=== PATIENT | male | born 1980 | race Caucasian/White ===

== ENCOUNTER 2019-04-17 11:50 | Inpatient (IN) | payer BC ==
[~2019-04-17] VITALS: Ht 193 cm; Wt 102.3 kg
[2019-04-17 12:31] LABS: BASOPHILS # (AUTO) 0.1 X10'3 (0-0.2); BASOPHILS % (AUTO) 0.5 % (0-1); EOSINOPHILS # (AUTO) 0.1 X10'3 (0-0.9); EOSINOPHILS % (AUTO) 0.5 % (0-6); HEMATOCRIT 42.5 % (42.0-52.0); HEMOGLOBIN 14.5 g/dl (14.0-17.9); LYMPHOCYTES # (AUTO) 0.6 X10'3 (1.1-4.8); LYMPHOCYTES % (AUTO) 4.6 % (21-51); MEAN CORPUSCULAR HEMOGLOBIN 30.5 PG (27.0-31.0); MEAN CORPUSCULAR VOLUME 89.5 FL (78-98); MEAN PLATELET VOLUME 8.5 FL (7.4-10.4); MONOCYTES # (AUTO) 0.2 X10'3 (0-0.9); MONOCYTES % (AUTO) 1.6 % (2-12); NEUTROPHILS # (AUTO) 11.7 X10'3 (1.8-7.7); NEUTROPHILS % (AUTO) 92.8 % (42-75); PLATELET COUNT 345 X10'3 (140-440); RED BLOOD COUNT 4.74 X10'6 (4.70-6.10); RED CELL DISTRIBUTION WIDTH 14.6 % (11.5-14.5); WHITE BLOOD COUNT 12.6 X10'3 (4.5-11.0)
[2019-04-17] MEDS ORDERED: normal saline 1000ml 1,000 ML IV SCH (12:36)
[2019-04-17] MEDS ORDERED: metoclopramide 5 mg/ml inj IV ONE (12:40)
[2019-04-17] MEDS ORDERED: morphine 4 MG/ML inj SYRINge IV ONE (12:40)
[2019-04-17] MEDS ORDERED: potassium Cl 20 mEq SR tablet PO PRN ×4 (12:40→15:15)
[2019-04-17] MEDS ORDERED: potassium CL 10mEq/100ml bag 100 ML IV PRN ×4 (12:40→15:15)
[2019-04-17 12:48] LABS: CLARITY,URINE CLEAR (Clear); GLUCOSE, URINE >=1000 mg/dl (Neg); KETONES,URINE >=80 mg/dl (Neg); LEUKOCYTE ESTERASE ,URINE NEGATIVE (Neg); NITRITES, URINE NEGATIVE (Neg); OCCULT BLOOD,URINE SMALL (Neg); PH,URINE 5.5 (4.8-8.0); PROTEIN,URINE 30 mg/dl (Neg); UROBILINOGEN,URINE 0.2 E.U/dL (0.2-1.0)
[2019-04-17 12:50] LABS: ALANINE AMINOTRANSFERASE 74 U/L (12-78); ALBUMIN 2.3 G/DL (3.4-5.0); ALBUMIN/GLOBULIN RATIO 0.5 (1.1-1.5); ALKALINE PHOSPHATASE 354 IU/L (46-116); ANION GAP 18 (8-16); ASPARTATE AMINO TRANSFERASE 26 U/L (10-37); BILIRUBIN,TOTAL 0.5 MG/DL (0.1-1.0); BLOOD UREA NITROGEN 29 MG/DL (7-18); BUN/CREATININE RATIO 21.6 (5.4-32.0); CALCIUM 9.5 MG/DL (8.5-10.1); CHLORIDE 89 MMOL/L (99-107); CREATININE 1.34 MG/DL (0.60-1.10); GLUCOSE 420 MG/DL (70-104); POTASSIUM 4.5 MMOL/L (3.5-5.1); SODIUM 124 MMOL/L (135-145); TOTAL CARBON DIOXIDE 17.4 MMOL/L (24-32); TOTAL PROTEIN 7.2 G/DL (6.4-8.2); eGFR 59 ML/MIN
[2019-04-17 12:53] LABS: PHOSPHORUS 2.9 MG/DL (2.3-4.5); PLATELET ESTIMATE NORMAL; TOTAL CELLS COUNTED 100
[2019-04-17 12:54] LABS: COLOR,URINE YELLOW (Yellow); UA COLLECTION TYPE VOIDED
[2019-04-17 12:55] LABS: BACTERIA,URINE NONE SEEN /HPF (Neg); MUCUS STRANDS NONE SEEN /LPF (Neg); RBC,URINE NONE SEEN /HPF (0-2); SQUAMOUS EPITHELIAL CELL,UR FEW /LPF (FEW); WBC,URINE NONE SEEN /HPF (0-4)
[2019-04-17] MEDS ORDERED: normal saline 1000ML IV soln IV ONE (13:00)
[2019-04-17] MEDS: normal saline 1000ml 1,000 ML IV SCH ×4 (13:06→22:07)
[2019-04-17] MEDS ORDERED: CefTRIAXone 2gm/D5W 50ml 50 ML IV ONE (13:35)
[2019-04-17] MEDS ORDERED: azithromycin/NS 500mg/250ml 250 ML IV ONE (13:35)
[2019-04-17] MEDS ORDERED: acetaminophen 325mg tablet PO ONE (15:00)
[2019-04-17] MEDS ORDERED: METF-438 PO (15:09)
[2019-04-17] MEDS ORDERED: PRAV40TA3 PO (15:09)
[2019-04-17] MEDS ORDERED: OMEP-50 PO (15:09)
[2019-04-17] MEDS ORDERED: LIRA0.6P2 SQ (15:09)
[2019-04-17] MEDS ORDERED: INSU100I29 SQ (15:09)
[2019-04-17] MEDS ORDERED: NOVLG SQ (15:09)
[2019-04-17] MEDS ORDERED: ENAL2.5T PO (15:09)
[2019-04-17] MEDS ORDERED: magnesium 4gm in 100ml NS 100 ML IV PRN (15:15)
[2019-04-17] MEDS ORDERED: mag hydrox/Alum hydrox/simeth 30ml oral suspension PO PRN (15:15)
[2019-04-17] MEDS ORDERED: metoclopramide 5 mg/ml inj IV PRN (15:15)
[2019-04-17] MEDS ORDERED: morphine 2 MG/ML inj. syringe IV PRN ×2 (15:15)
[2019-04-17] MEDS ORDERED: magnesium 2GM in 50ml NS 50 ML IV PRN (15:15)
[2019-04-17] MEDS ORDERED: MESSAGE TO PHARMACY PO ONE (15:15)
[2019-04-17] MEDS ORDERED: dextrose 50%-water 50ml dispensing syringe IV PRN ×2 (15:15)
[2019-04-17] MEDS ORDERED: acetaminophen 325mg tablet PO PRN ×2 (15:15)
[2019-04-17] MEDS ORDERED: glucagon, human recombinant 1mg kit SUBCUT PRN (15:15)
[2019-04-17] MEDS ORDERED: ipratropium/albuterol 3ml nebule NEB PRN (15:15)
[2019-04-17] MEDS ORDERED: acetaminophen 650mg rectal suppository RC PRN (15:15)
[2019-04-17] MEDS ORDERED: magnesium Cl slow-release 64mg tablet PO PRN (15:15)
[2019-04-17] MEDS ORDERED: dextrose ORAL solution 15 GM/59 ML bottle PO PRN ×2 (15:15)
[2019-04-17] MEDS ORDERED: magnesium hydroxide 30ml (MOM) UD suspension PO PRN (15:15)
[2019-04-17] MEDS ORDERED: bisacodyl 10mg suppository rectal RC PRN (15:15)
[2019-04-17] MEDS ORDERED: iohexol 350MG/ML 100ml bottle IV ONE (15:46)
[2019-04-17] MEDS: levoFLOXACIN-Levaquin 750MG/D5 150 ML IV SCH (15:53)
[2019-04-17 15:56] LABS: URINE AMPHETAMINE SCREEN NEGATIVE (Neg); URINE BARBITUATE SCREEN NEGATIVE (Neg); URINE BENZODIAZEPINES SCREEN NEGATIVE (Neg); URINE CANNABINOID SCREEN POSITIVE (Neg); URINE COCAINE SCREEN NEGATIVE (Neg); URINE METHADONE SCREEN NEGATIVE (Neg); URINE OPIATE SCREEN NEGATIVE (Neg); URINE PHENCYCLIDINE SCREEN NEGATIVE (Neg)
--- NOTE | 2019-04-17 16:58 | NUR ---
RECEIVED REPORT VIA TELEPHONE FROM STEPHEN OTT
--- NOTE | 2019-04-17 16:58 | NUR ---
PER [facility], ROOM NOT CLEAN AND READY FOR PT. [facility] WILL CALL WITH UPDATE. ED CRN NOTIFIED
[2019-04-17] MEDS: ondansetron/PF 4mg/2ml inj IV PRN (17:31)
--- NOTE | 2019-04-17 17:45 | NUR ---
RECEIVED VIA CHOCO FROM
[2019-04-17 18:00] VITALS: BP 111/51
--- NOTE | 2019-04-17 18:25 | NUR ---
Problems reprioritized. Patient report given, questions answered & plan of care reviewed with STEPHEN GRIMM.
--- NOTE | 2019-04-17 19:07 | NUR ---
Patient in room PCU 3016. I have received report from Homar MITCHELL and had the opportunity to ask questions and assume patient care.
[2019-04-17] MEDS: K and/or MAG REPLACEMENT MC SCH ×2 (19:19→19:20)
--- NOTE | 2019-04-17 19:21 | NUR ---
Patient just received dinner tray. Will cover with insulin once he has eaten so carbs can be calculated.
[2019-04-17 19:24] LABS: D-DIMER 2.36 MG/L FEU (0-0.50)
[2019-04-17] MEDS: insulin Lispro (HumaLOG) vial - multi-dose SQ SCH ×2 (19:48→21:40)
[2019-04-17] MEDS: heparin, porcine 5000 units/ml vial SQ SCH (19:50)
[2019-04-17] MEDS ORDERED: diphenhydrAMINE 25mg capsule PO ONE (21:25)
[2019-04-17] MEDS ORDERED: prednisone 10mg tablet PO PRN (21:25)
[2019-04-17] MEDS: insulin glargine (Lantus) pen - multi-dose SQ SCH (21:40)
[2019-04-17] MEDS: ipratropium/albuterol 3ml nebule NEB SCH (21:44)
[2019-04-17] MEDS ORDERED: prednisone 10mg tablet PO ONE (21:55)
[2019-04-17 22:00] VITALS: BP 115/53
--- NOTE | 2019-04-17 22:23 | NUR ---
promotional table spacer PAGER ID: [phone] MESSAGE: Patient Festus Leal Rm [id number] Patient requesting a sleep aid please. Thank you! Jeannette MITCHELL ext. [phone]
[2019-04-18] MEDS ORDERED: temazepam 15mg capsule PO PRN (01:05)
[2019-04-18 02:00] VITALS: BP 123/70
[2019-04-18 03:43] LABS: BASOPHILS % (AUTO) 0.2 % (0-1); EOSINOPHILS % (AUTO) 0 % (0-6); HEMATOCRIT 36.5 % (42.0-52.0); HEMOGLOBIN 12.6 g/dl (14.0-17.9); LYMPHOCYTES # (AUTO) 0.6 X10'3 (1.1-4.8); LYMPHOCYTES % (AUTO) 5.9 % (21-51); MEAN CORPUSCULAR HEMOGLOBIN 31.3 PG (27.0-31.0); MEAN CORPUSCULAR HGB CONC 34.5 g/dL (33.0-36.5); MEAN CORPUSCULAR VOLUME 90.7 FL (78-98); MEAN PLATELET VOLUME 8.7 FL (7.4-10.4); MONOCYTES # (AUTO) 0.2 X10'3 (0-0.9); MONOCYTES % (AUTO) 2.1 % (2-12); NEUTROPHILS # (AUTO) 9.4 X10'3 (1.8-7.7); NEUTROPHILS % (AUTO) 91.8 % (42-75); PLATELET COUNT 268 X10'3 (140-440); RED BLOOD COUNT 4.03 X10'6 (4.70-6.10); RED CELL DISTRIBUTION WIDTH 14.7 % (11.5-14.5); WHITE BLOOD COUNT 10.2 X10'3 (4.5-11.0)
[2019-04-18 03:55] LABS: ALANINE AMINOTRANSFERASE 57 U/L (12-78); ALBUMIN 1.9 G/DL (3.4-5.0); ALBUMIN/GLOBULIN RATIO 0.5 (1.1-1.5); ALKALINE PHOSPHATASE 272 IU/L (46-116); ANION GAP 13 (8-16); ASPARTATE AMINO TRANSFERASE 27 U/L (10-37); BILIRUBIN,TOTAL 0.3 MG/DL (0.1-1.0); BLOOD UREA NITROGEN 24 MG/DL (7-18); CALCIUM 8.4 MG/DL (8.5-10.1); CHLORIDE 97 MMOL/L (99-107); CREATININE 1.26 MG/DL (0.60-1.10); GLUCOSE 316 MG/DL (70-104); POTASSIUM 4.3 MMOL/L (3.5-5.1); SODIUM 131 MMOL/L (135-145); TOTAL PROTEIN 5.9 G/DL (6.4-8.2); eGFR 63 ML/MIN
[2019-04-18 03:59] LABS: CHOL/HDL RATIO 7.8 (0.00-4.99); CHOLESTEROL 94 MG/DL (0-200); HDL CHOLESTEROL 12 MG/DL (35-60); LDL CHOLESTEROL 47 MG/DL (50-100); MAGNESIUM 1.9 MG/DL (1.5-2.4); PHOSPHORUS 2.7 MG/DL (2.3-4.5); TRIGLYCERIDES 159 MG/DL (20-135)
[2019-04-18] MEDS ORDERED: prednisone 10mg tablet PO ONE ×2 (04:00→10:00)
[2019-04-18] MEDS: ipratropium/albuterol 3ml nebule NEB SCH ×4 (04:16→20:50)
[2019-04-18 06:00] VITALS: BP 99/55
--- NOTE | 2019-04-18 06:30 | NUR ---
Patient in room PCU 3016. I have received report from STEPHEN GRIMM and had the opportunity to ask questions and assume patient care.
--- NOTE | 2019-04-18 06:33 | NUR ---
Problems reprioritized. Patient report given, questions answered & plan of care reviewed with Homar RN.
[2019-04-18] MEDS: normal saline 1000ml 1,000 ML IV SCH ×2 (07:27→15:29)
[2019-04-18 07:32] VITALS: BP 99/59
[2019-04-18] MEDS: lisinopril 5mg tablet PO SCH (07:33)
[2019-04-18] MEDS: pravastatin 40mg tablet PO SCH (07:35)
[2019-04-18] MEDS: HYDROcodone/acetaminophen 10/325mg tab PO PRN ×2 (07:36→17:22)
[2019-04-18] MEDS: heparin, porcine 5000 units/ml vial SQ SCH ×2 (07:38→19:08)
[2019-04-18] MEDS: K and/or MAG REPLACEMENT MC SCH ×3 (08:00→20:00)
--- NOTE | 2019-04-18 08:46 | NUR ---
PAGER ID: [phone] MESSAGE: DR. MURPHY, [id number]/ANDREW,HAVE BEEN PRE MEDICATING FOR CTA, NUC MED HERE FOR VQ SCAN. PLEASE CLARIFY. [facility] [id number]. TY.
[2019-04-18] MEDS: insulin Lispro (HumaLOG) vial - multi-dose SQ SCH ×4 (09:00→21:39)
[2019-04-18] MEDS ORDERED: iohexol 350MG/ML 100ml bottle IV ONE (09:55)
[2019-04-18 11:00] VITALS: BP 99/63
[2019-04-18] MEDS: MESSAGE TO NURSING PO SCH (11:15)
--- NOTE | 2019-04-18 11:48 | NUR ---
PAGER ID: [phone] MESSAGE: DR. MURPHY, [id number]/ANDREW, SMOKES A PACK A DAY, REQUESTING NICOTINE PATCH. [facility] [id number]. TY./
--- NOTE | 2019-04-18 15:17 | NUR ---
DM/Malnutrition consult: Pt admitted with sepsis r/t pneumonia and respiratory failure. RD sourcing internship visited pt and family member at bedside and provided written and verbal protein and DM education with referral to CDE course and RD contact information. Pt documented with A1c of 11 and reports A1c of 10.5 a few months ago when he last visited his acls specialist. He reports only "checking his blood sugars when he feels funny" and correcting it as needed. Pt encouraged to check his blood sugars more frequently and to see his DM specialist frequently for DM management. He expressed his frustrations with his current DM specialist and reports looking for a different one. He reports currently taking metformin and 3 insulins, however could not recall what they were called. He is documented with metformin, novolog and tresiba per MD. 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 Pt agreeable to double protein BIDLD, d/w dietary. Pt currently eating well on carb controlled diet with PO intake of 100% last two meals, up from 25% of first meal, meeting nutrient needs. Pt does not appear with visible fat or muscle wasting and reports losing weight due to not feeling well, but was not sure how much. He is documented with no edema and normal muscle strength. Pt does not meet minimum criteria for malnutrition at this time. LBM 2/7. Pt reports constipation, agreeable to power pudding tonight, d/w dietary. Will continue to monitor. Recommendations: 1. continue carb controlled diet 2. double protein BIDLD 3. bowel care as needed 4. weight per rx Addendum: 04/18/19 at 1518 by Wing Ángela SANTOS Amended: Links added. Addendum: 04/18/19 at [address] I have reviewed and agree with note by Secy. Nkechi Christine RD
[2019-04-18] MEDS: levoFLOXACIN-Levaquin 750MG/D5 150 ML IV SCH (15:29)
--- NOTE | 2019-04-18 16:45 | NUR ---
PAGER ID: [phone] MESSAGE: DR. MURPHY, [id number]/ANDREW, AND SISTER ARE CONCERNED HIS SKIN IS LOOKING YELLOW. I DO NOT SEE IT, BUT THEY ARE VERY CONCERNED. [facility] [id number]. TY
--- NOTE | 2019-04-18 18:21 | NUR ---
Problems reprioritized. Patient report given, questions answered & plan of care reviewed with STEPHEN GRIMM.
[2019-04-18 18:30] VITALS: BP 102/57
--- NOTE | 2019-04-18 18:33 | NUR ---
Patient in room PCU 3017. I have received report from Homar MITCHELL and had the opportunity to ask questions and assume patient care.
[2019-04-18] MEDS: ondansetron/PF 4mg/2ml inj IV PRN (19:07)
[2019-04-18] MEDS: insulin glargine (Lantus) pen - multi-dose SQ SCH (21:42)
[2019-04-18 22:30] VITALS: BP 100/57
[2019-04-19] MEDS: normal saline 1000ml 1,000 ML IV SCH ×3 (01:51→11:08)
[2019-04-19 02:00] VITALS: BP 105/57
[2019-04-19] MEDS: ipratropium/albuterol 3ml nebule NEB SCH ×4 (02:32→21:11)
[2019-04-19 06:01] LABS: BASOPHILS # (AUTO) 0.1 X10'3 (0-0.2); BASOPHILS % (AUTO) 0.5 % (0-1); EOSINOPHILS # (AUTO) 0.1 X10'3 (0-0.9); EOSINOPHILS % (AUTO) 0.8 % (0-6); HEMATOCRIT 33.7 % (42.0-52.0); HEMOGLOBIN 11.4 g/dl (14.0-17.9); LYMPHOCYTES # (AUTO) 0.9 X10'3 (1.1-4.8); LYMPHOCYTES % (AUTO) 6.5 % (21-51); MEAN CORPUSCULAR HEMOGLOBIN 30.8 PG (27.0-31.0); MEAN CORPUSCULAR HGB CONC 33.8 g/dL (33.0-36.5); MEAN CORPUSCULAR VOLUME 91.1 FL (78-98); MEAN PLATELET VOLUME 8.9 FL (7.4-10.4); MONOCYTES # (AUTO) 0.6 X10'3 (0-0.9); MONOCYTES % (AUTO) 4.7 % (2-12); NEUTROPHILS # (AUTO) 11.7 X10'3 (1.8-7.7); NEUTROPHILS % (AUTO) 87.5 % (42-75); PLATELET COUNT 328 X10'3 (140-440); RED CELL DISTRIBUTION WIDTH 14.9 % (11.5-14.5); WHITE BLOOD COUNT 13.4 X10'3 (4.5-11.0)
[2019-04-19 06:17] LABS: ALANINE AMINOTRANSFERASE 48 U/L (12-78); ALBUMIN 1.9 G/DL (3.4-5.0); ALBUMIN/GLOBULIN RATIO 0.5 (1.1-1.5); ALKALINE PHOSPHATASE 253 IU/L (46-116); ANION GAP 20 (8-16); ASPARTATE AMINO TRANSFERASE 25 U/L (10-37); BILIRUBIN,TOTAL 0.4 MG/DL (0.1-1.0); BLOOD UREA NITROGEN 26 MG/DL (7-18); BUN/CREATININE RATIO 21.1 (5.4-32.0); CALCIUM 8.4 MG/DL (8.5-10.1); CHLORIDE 101 MMOL/L (99-107); CREATININE 1.23 MG/DL (0.60-1.10); GLUCOSE 390 MG/DL (70-104); MAGNESIUM 2.2 MG/DL (1.5-2.4); PHOSPHORUS 2.2 MG/DL (2.3-4.5); SODIUM 135 MMOL/L (135-145); TOTAL PROTEIN 5.8 G/DL (6.4-8.2); eGFR 65 ML/MIN
[2019-04-19 06:21] LABS: TOTAL CARBON DIOXIDE 14.1 MMOL/L (24-32)
--- NOTE | 2019-04-19 06:28 | NUR ---
Problems reprioritized. Patient report given, questions answered & plan of care reviewed with Lindsey MITCHELL.
--- NOTE | 2019-04-19 06:45 | NUR ---
Paged Dr. Godinez regarding critical C02 PAGER ID: [phone] MESSAGE: re [id number] Festus Drake- Critical lab C02 14.1. Thanks, Lindsey sanchez [phone] Addendum: 04/19/19 at 0651 by Lindsey Acosta RN New order for MAYELIN. Page sent to Respiratory.
[2019-04-19 07:00] VITALS: BP 101/61
[2019-04-19] MEDS: K and/or MAG REPLACEMENT MC SCH ×3 (08:00→20:00)
[2019-04-19 08:41] LABS: ABG HCO3 12.3 mmol/L (22.0-26.0); ABG PCO2 (T) 26.9 mmHg (35.0-45.0); ABG PH (T) 7.277 (7.350-7.450); ABG PO2 (T) 83.3 mmHg (83-108); FCOHb 0.3 % (0.5-1.5); FMetHb 0.2 % (0.3-1.12); FO2Hb 95.5 % (94-100)
[2019-04-19] MEDS: lisinopril 5mg tablet PO SCH (09:00)
[2019-04-19] MEDS: pravastatin 40mg tablet PO SCH (09:00)
[2019-04-19] MEDS: heparin, porcine 5000 units/ml vial SQ SCH ×2 (09:01→22:00)
[2019-04-19] MEDS: pantoprazole 40mg Tablet.DR PO SCH (09:03)
[2019-04-19] MEDS: insulin Lispro (HumaLOG) vial - multi-dose SQ SCH (09:07)
[2019-04-19] MEDS: ondansetron/PF 4mg/2ml inj IV PRN ×2 (09:17→16:41)
[2019-04-19] MEDS: HYDROcodone/acetaminophen 10/325mg tab PO PRN ×2 (09:17→13:36)
[2019-04-19] MEDS ORDERED: sodium bicarbonate (8.4%) inj. 100 MEQ in dextrose 5% water 500ml 500 ML IV PRN (09:49)
[2019-04-19] MEDS ORDERED: normal saline 1000ml 1,000 ML IV SCH (09:49)
[2019-04-19] MEDS ORDERED: sodium bicarbonate (8.4%) inj. 50 MEQ in dextrose 5% water 500ml 250 ML IV PRN (09:49)
[2019-04-19] MEDS ORDERED: potassium Cl 20 mEq SR tablet PO PRN ×2 (09:50)
[2019-04-19] MEDS ORDERED: sodium phosphate inj. 30 MMOL in dextrose 5%-water 250 ML IV PRN (09:50)
[2019-04-19] MEDS ORDERED: potassium CL 10mEq/100ml bag 100 ML IV PRN ×2 (09:50)
[2019-04-19] MEDS ORDERED: insulin regular, human U-100 3ml vial - multi-dose IV PRN (09:50)
[2019-04-19] MEDS ORDERED: sodium phosphate inj. 15 MMOL in dextrose 5%-water 250 ML IV PRN (09:50)
[2019-04-19] MEDS ORDERED: sodium bicarbonate (8.4%) inj. 100 MEQ in sodium chloride 0.45% 1,000 ML IV SCH (09:50)
[2019-04-19] MEDS: MESSAGE TO NURSING PO SCH (10:00)
--- NOTE | 2019-04-19 10:00 | NUR ---
Problems reprioritized. Patient report given, questions answered & plan of care reviewed with STEPHEN Santillan and STEPHEN Flor.
--- NOTE | 2019-04-19 10:00 | NUR ---
Received report from [facility] to assume care. Patient stable.
[2019-04-19] MEDS ORDERED: Potassium Cl inj 20 MEQ in normal saline 1000ml 990 ML IV SCH (10:30)
[2019-04-19 11:00] VITALS: BP 98/51
[2019-04-19] MEDS: Insulin Reg/NS 100units/100mL 100 ML IV SCH (11:49)
--- NOTE | 2019-04-19 13:00 | NUR ---
Nutrition consult: Pt seen by international coordinator yesterday for written and verbal DM and protein education as well as malnutrition risk screen, see below. Pt documented with 75-100% PO intake receiving double protein BIDLD prior to diet order change to NPO. No further f/u warranted at this time. Will continue to follow. DM/Malnutrition consult: Pt admitted with sepsis r/t pneumonia and respiratory failure. RD event planning intern visited pt and family member at bedside and provided written and verbal protein and DM education with referral to CDE course and RD contact information. 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 He reports only "checking his blood sugars when he feels funny" and correcting it as needed. Pt encouraged to check his blood sugars more frequently and to see his DM specialist frequently for DM management. He expressed his frustrations with his current DM specialist and reports looking for a different one. He reports currently taking metformin and 3 insulins, however could not recall what they were called. He is documented with metformin, novolog and tresiba per MD. Pt reports a great appetite now and actually "feeling hungry again" which he wasn't d/t N/V 2-3 days [employer]. Pt agreeable to double protein BIDLD, d/w dietary. Pt currently eating well on carb controlled diet with PO intake of 100% last two meals, up from 25% of first meal, meeting nutrient needs. Pt does not appear with visible fat or muscle wasting and reports losing weight due to not feeling well, but was not sure how much. He is documented with no edema and normal muscle strength. Pt does not meet minimum criteria for malnutrition at this time. LBM 2/7. Pt reports constipation, agreeable to power pudding tonight, d/w dietary. Will continue to monitor. Recommendations: 1. continue carb controlled diet 2. double protein BIDLD 3. bowel care as needed 4. weight per rx Addendum: 02/12/20 at [address] Amended: Links added.
--- NOTE | 2019-04-19 14:01 | NUR ---
Paged Dr. Rudolph: PAGER ID: [phone] MESSAGE: RE: Festus Drake [id number]. Patient is a pack per day smoker. He is requesting a nicotine patch. Thank you. Jacque [phone]
--- NOTE | 2019-04-19 14:50 | NUR ---
New order from Dr. Rudolph: 21 mg nicotine patch daily.
[2019-04-19 15:00] VITALS: BP 98/62
[2019-04-19] MEDS: nicotine 21mg patch - 24 hr TD SCH (15:12)
[2019-04-19] MEDS: potassium CL 20mEq in D5-1/2NS 1,000 ML IV PRN ×2 (15:13→23:08)
[2019-04-19] MEDS: Neutra Phos packet PO PRN (16:41)
[2019-04-19 16:46] LABS: ALBUMIN 1.9 G/DL (3.4-5.0); ANION GAP 12 (8-16); BLOOD UREA NITROGEN 21 MG/DL (7-18); BUN/CREATININE RATIO 19.4 (5.4-32.0); CALCIUM 8.3 MG/DL (8.5-10.1); CHLORIDE 107 MMOL/L (99-107); CREATININE 1.08 MG/DL (0.60-1.10); GLUCOSE 198 MG/DL (70-104); POTASSIUM 3.5 MMOL/L (3.5-5.1); SODIUM 138 MMOL/L (135-145); TOTAL CARBON DIOXIDE 19.3 MMOL/L (24-32); eGFR 76 ML/MIN
[2019-04-19 19:00] VITALS: BP 93/52
[2019-04-19] MEDS: levoFLOXACIN-Levaquin 750MG/D5 150 ML IV SCH (19:51)
[2019-04-19 22:00] VITALS: BP 112/62
[2019-04-20] MEDS: Neutra Phos packet PO PRN (00:14)
[2019-04-20] MEDS: Insulin Reg/NS 100units/100mL 100 ML IV SCH (01:21)
[2019-04-20 02:00] VITALS: BP 114/71
[2019-04-20] MEDS: ipratropium/albuterol 3ml nebule NEB SCH ×3 (03:17→14:14)
[2019-04-20] MEDS: HYDROcodone/acetaminophen 10/325mg tab PO PRN (03:19)
[2019-04-20] MEDS: potassium CL 20mEq in D5-1/2NS 1,000 ML IV PRN ×2 (03:55→07:37)
--- NOTE | 2019-04-20 04:28 | NUR ---
Radhad JAYY Hospitalist: PAGER ID: [phone] MESSAGE: RE: Festus Leal [id number]. DKA patient. Blood sugars trending in the 130's. Insulin gtt at 5 units. IVF D5 1/2 NS +20kcl at 250. Can we decrease insulin rate? Thank you. Jacque Topete Addendum: 04/20/19 at 0623 by Jacque Levine RN New order from Dr. Godinez: Insulin gtt @ 3 units/hour
[2019-04-20] MEDS ORDERED: Insulin Reg/NS 100units/100mL 100 ML IV SCH (04:42)
[2019-04-20 05:33] LABS: BASOPHILS % (AUTO) 0.3 % (0-1); EOSINOPHILS % (AUTO) 0.2 % (0-6); HEMATOCRIT 33.8 % (42.0-52.0); HEMOGLOBIN 11.8 g/dl (14.0-17.9); LYMPHOCYTES # (AUTO) 1.3 X10'3 (1.1-4.8); LYMPHOCYTES % (AUTO) 11.7 % (21-51); MEAN CORPUSCULAR HGB CONC 34.9 g/dL (33.0-36.5); MEAN CORPUSCULAR VOLUME 88.9 FL (78-98); MEAN PLATELET VOLUME 8.5 FL (7.4-10.4); MONOCYTES # (AUTO) 0.7 X10'3 (0-0.9); MONOCYTES % (AUTO) 6.9 % (2-12); NEUTROPHILS # (AUTO) 8.8 X10'3 (1.8-7.7); NEUTROPHILS % (AUTO) 80.9 % (42-75); PLATELET COUNT 364 X10'3 (140-440); RED CELL DISTRIBUTION WIDTH 14.9 % (11.5-14.5); WHITE BLOOD COUNT 10.9 X10'3 (4.5-11.0)
[2019-04-20 06:00] VITALS: BP 101/57
[2019-04-20 06:01] LABS: ALANINE AMINOTRANSFERASE 41 U/L (12-78); ALBUMIN 1.8 G/DL (3.4-5.0); ALBUMIN/GLOBULIN RATIO 0.5 (1.1-1.5); ALKALINE PHOSPHATASE 194 IU/L (46-116); ANION GAP 9 (8-16); ASPARTATE AMINO TRANSFERASE 22 U/L (10-37); BILIRUBIN,TOTAL 0.3 MG/DL (0.1-1.0); BLOOD UREA NITROGEN 10 MG/DL (7-18); BUN/CREATININE RATIO 11.2 (5.4-32.0); CALCIUM 8.1 MG/DL (8.5-10.1); CHLORIDE 107 MMOL/L (99-107); CREATININE 0.89 MG/DL (0.60-1.10); GLUCOSE 147 MG/DL (70-104); MAGNESIUM 1.5 MG/DL (1.5-2.4); POTASSIUM 3.2 MMOL/L (3.5-5.1); SODIUM 139 MMOL/L (135-145); TOTAL CARBON DIOXIDE 23.1 MMOL/L (24-32); TOTAL PROTEIN 5.3 G/DL (6.4-8.2); eGFR > 90 ML/MIN
--- NOTE | 2019-04-20 06:10 | NUR ---
Patient in room PCU 3026. I have received report from Jacque MITCHELL and had the opportunity to ask questions and assume patient care.
[2019-04-20 06:17] LABS: PHOSPHORUS 1.1 MG/DL (2.3-4.5)
--- NOTE | 2019-04-20 06:23 | NUR ---
Problems reprioritized. Patient report given, questions answered & plan of care reviewed with STEPHEN Lowe. Patient stable at transfer of care.
--- NOTE | 2019-04-20 06:27 | NUR ---
Patient in room PCU 3026. I have received report from Jacque MITCHELL and had the opportunity to ask questions and assume patient care.
[2019-04-20] MEDS: pravastatin 40mg tablet PO SCH (07:34)
[2019-04-20] MEDS: heparin, porcine 5000 units/ml vial SQ SCH (07:34)
[2019-04-20] MEDS: pantoprazole 40mg Tablet.DR PO SCH (07:35)
[2019-04-20] MEDS: lisinopril 5mg tablet PO SCH (07:39)
[2019-04-20] MEDS: K and/or MAG REPLACEMENT MC SCH ×2 (07:40→08:00)
[2019-04-20] MEDS: nicotine 21mg patch - 24 hr TD SCH (07:53)
--- NOTE | 2019-04-20 09:48 | NUR ---
PAGER ID: [phone] MESSAGE: Re: Festus Andrew, Room: [facility]. Pt's Anion gap: 9 and CO2: 23.1. Diet ordered for Pt. Do you want any Lantus administered prior to eating? -[facility] #[id number] Dr. Rudolph paged concerning Pt's current labs and Diet
[2019-04-20] MEDS: ondansetron/PF 4mg/2ml inj IV PRN ×2 (09:49→15:14)
[2019-04-20] MEDS: HYDROcodone/acetaminophen 5mg/325mg tablet PO PRN ×2 (09:49→15:14)
[2019-04-20] MEDS ORDERED: glucagon, human recombinant 1mg kit SUBCUT PRN (09:55)
[2019-04-20] MEDS ORDERED: dextrose 50%-water 50ml dispensing syringe IV PRN ×2 (09:55)
[2019-04-20] MEDS ORDERED: dextrose ORAL solution 15 GM/59 ML bottle PO PRN ×2 (09:55)
[2019-04-20] MEDS ORDERED: potassium phosphate inj 30 MMOL in normal saline 500ml IV soln 500 ML IV ONE (10:00)
[2019-04-20] MEDS: MESSAGE TO NURSING PO SCH (10:00)
[2019-04-20] MEDS ORDERED: magnesium 4gm in 100ml NS 100 ML IV ONE (10:05)
--- NOTE | 2019-04-20 10:15 | NUR ---
Per Dr. Rudolph's orders. Give 10 units lantus while eating. Administer humalog sliding scale insulin after eating, then turn insulin gtt off 1 hour later
[2019-04-20 10:30] LABS: TOTAL CELLS COUNTED 100
[2019-04-20 10:31] LABS: PLATELET ESTIMATE NORMAL
[2019-04-20 11:00] VITALS: BP 110/61
[2019-04-20] MEDS: insulin Lispro (HumaLOG) vial - multi-dose SQ SCH ×2 (11:25→13:28)
[2019-04-20 15:00] VITALS: BP 114/70
[2019-04-20] MEDS: levoFLOXACIN-Levaquin 750MG/D5 150 ML IV SCH (15:00)
[2019-04-20 15:21] LABS: MAGNESIUM 1.8 MG/DL (1.5-2.4); PHOSPHORUS 1.9 MG/DL (2.3-4.5)
[2019-04-20 15:30] LABS: ALBUMIN 1.9 G/DL (3.4-5.0); ANION GAP 9 (8-16); BLOOD UREA NITROGEN 8 MG/DL (7-18); CHLORIDE 103 MMOL/L (99-107); CREATININE 0.89 MG/DL (0.60-1.10); GLUCOSE 159 MG/DL (70-104); POTASSIUM 3.4 MMOL/L (3.5-5.1); SODIUM 138 MMOL/L (135-145); TOTAL CARBON DIOXIDE 25.7 MMOL/L (24-32); eGFR > 90 ML/MIN
--- NOTE | 2019-04-20 15:41 | NUR ---
PAGER ID: [phone] MESSAGE: Re: Festus Leal, Room: [facility]. BMP, Phos and Mag resulted. Current Ma.8, Phos: 1.9 and Potassium: 3.4 -[facility] #[id number] Dr. Rudolph paged concerning Pt's current labs
[2019-04-20] MEDS ORDERED: HYDR-4383 PO (16:07)
[2019-04-20] MEDS ORDERED: POTA10TA36 PO (16:07)
[2019-04-20] MEDS ORDERED: LACT1CAP26 PO (16:07)
[2019-04-20] MEDS ORDERED: LEVO500T89 PO (16:07)
[2019-04-20] MEDS ORDERED: NICO-687 TD (16:07)
[2019-04-20] MEDS ORDERED: MAGN400C PO (16:07)
[2019-04-20] MEDS ORDERED: NEUPHOSK PO (16:07)
[2019-04-20] MEDS ORDERED: ALBU8HFA PO (16:07)
--- NOTE | 2019-04-20 17:09 | NUR ---
Patient stable for discharge per MD orders, all discharge instructions reviewed with patient, new prescriptions called into pharmacy, , PIV's DC, tele DC, belongings collected and sent with the patient, took in personal vehicle, walked patient to lobby.
[2019-04-20] MEDS ORDERED: lactobacillus rhamnosus 10,000 MMU CELLS/CAPSULE PO SCH (20:00)
[2019-04-20] MEDS ORDERED: insulin glargine (Lantus) pen - multi-dose SQ SCH (21:00)
== END 2019-04-20 16:55 | disposition home or self-care (01) | DRG 871 ==
LOC: ER 11:51 → ED HOLD 15:13 → PCU 3S 17:37
PROVIDERS: ADMIT Family Medicine; ATTEND Family Medicine
DX: A41.9 Sepsis, unspecified organism (principal); J18.9 Pneumonia, unspecified organism; G93.41 Metabolic encephalopathy; N17.9 Acute kidney failure, unspecified; E87.1 Hypo-osmolality and hyponatremia; E10.65 Type 1 diabetes mellitus with hyperglycemia; Z79.4 Long term (current) use of insulin; K21.9 Gastro-esophageal reflux disease without esophagitis; Z71.6 Tobacco abuse counseling; F17.210 Nicotine dependence, cigarettes, uncomplicated; K57.30 Diverticulosis of large intestine without perforation or abscess without bleeding; E86.0 Dehydration; I10 Essential (primary) hypertension; E86.1 Hypovolemia
CPT/HCPCS: 36415; 36600; 71045; 71275; 74176; 80048; 80053; 80061; 80305; 81001; 82803; 82948; 83036; 83605; 83735; 83880; 84100; 84145; 84484; 85018; 85025; 85379; 87040; 87081; 87502; 87503; 93005; 93306; 93970; 94640; 94667; 94668; 94760; 96365; 96375; 99285; G0378; J0456; J0696; J1644; J1815; J1956; J2270; J2405; J2765; J3475; J3480; J7030; J7060; J7512; Q0163; Q9967